=== PATIENT | female | born 1945 | race Caucasian/White ===

== ENCOUNTER 2016-09-15 03:02 | Emergency (ER) | payer MEDICARE ==
[2016-09-15 03:02] VITALS: BMI 26.0
[2016-09-15] MEDS ORDERED: METHYLPREDNISOLONE 125 MG/2 ML VIAL IV ONE (03:39)
[2016-09-15] MEDS ORDERED: Albuterol/Ipratropium Neb 3 ML NEB NEB ONE (03:39)
--- NOTE | 2016-09-15 03:41 | EDPRACDOC ---
- General Information Chief Complaint: Dyspnea/Resp distress Stated Complaint: SHOB Time Seen by Provider: 09/15/16 03:34 Home Medications: Home Medications Albuterol Sulfate [Ventolin Hfa] 1 - 2 puff INH Q4H PRN #1 each 01/26/15 Azithromycin [Zithromax] 0 mg PO DAILY #6 tablet 01/26/15 Diazepam 5 mg PO BID 01/26/15 Fluticasone/Salmeterol [Advair 250-50] 14 puff INH DAILY 01/26/15 Furosemide [Lasix] 20 mg PO DAILY 01/26/15 Lisinopril [Prinivil] 10 mg PO DAILY 01/26/15 Pramipexole [Mirapex] 0.125 mg PO HS 01/26/15 Prednisone [Sterapred 5 mg/6 day Uni-Pack] 21 tab PO DIR #1 pack 01/26/15 Tiotropium Scurry [Spiriva] 18 mcg IH DAILY 01/26/15 Benzonatate [Tessalon Perle] 100 mg PO TID PRN #20 capsule 04/20/16 Pseudoephedrine HCl 60 mg PO Q6 PRN #20 tablet 04/20/16 Albuterol Sulfate Nebs [Proventil, Ventolin] 3 ml NEB Q4 #60 nebu 09/15/16 Albuterol Sulfate [Ventolin Hfa] 1 - 2 puff INH Q4H PRN #1 each 09/15/16 Levofloxacin [Levaquin] 750 mg PO DAILY #10 tab 09/15/16 Prednisone [Sterapred 10 mg/6 day pack] 21 tab PO DIR #1 pack 09/15/16 Allergies/Adverse Reactions: Allergies Allergy/AdvReac Type Severity Reaction Status Date / Time No Known Allergies Allergy Verified 04/20/16 07:03 - History of Present Illness HPI: PATIENT HAS A HX OF COPD AND BECAME INCREASING SOB TONIGHT. NO FEVER. COUGH PRODUCTIVE OF KIRAN SPUTUM. Shortness of Breath: Moderate Relevant History: Reports: COPD Cough: Reports: Productive Ear Symptoms: Reports: None SOB Worsens with: Reports: Nothing SOB Improves with: Reports: Inhaler Associated Signs and symptoms: Reports: Cough, Nasal Symptoms ED Past Medical History - History Reviewed Yes Nurses notes reviewed and agree except as marked Travel Outside of [place] in the Last 3 Months?: No - Patient Medical History Cardiac History: Reports: Hypertension Respiratory History: Reports: COPD GI/ History: Reports: Gastroesophageal Reflux Psychological History: Reports: Depression - Social Medical History Smoking Status: Former smoker ETOH: None Substance Abuse: None Lives With: Family Lives In: Home EDM Review of Systems - Review of Systems ROS Negative Except as Marked: Yes All systems reviewed and were negative except as marked Constitutional: No Symptoms Reported. negative: Fever, Chills, Weakness, Fatigue, Loss of Appetite Eyes: No Symptoms Reported. negative: Redness, Blurred Vision, Double Vision, Discharge, Pain, Light Sensitive, Photophobia Ears: No Symptoms Reported. negative: Pain, Hearing Loss, Drainage, Ear Pulling Throat: No Symptoms Reported. negative: Pain, Swelling Nose: No Symptoms Reported. negative: Congestion, Bleeding, Discharge, Injection, Swelling, Deformity, Ecchymosis, Tender, Abrasion, Laceration Mouth: No Symptoms Reported. negative: Pain, Drooling Respiratory: Cough, Shortness of Breath, Wheezing. negative: Barky Cough, Brassy Cough, Hemoptysis Cardiovascular: No Symptoms Reported. negative: Chest Pain, Palpitations, Syncope, Edema, Orthopnea, PND, Skin Mottling, Cyanosis Gastrointestinal: No Symptoms Reported. negative: Pain, Constipation, Nausea, Vomiting, Diarrhea, Melena, Formula Intolerance Genitourinary: No Symptoms Reported. negative: Dysuria, Hematuria, Frequency, Discharge, Bleeding, Testicular Pain, Neurological: No Symptoms Reported. negative: Headache, Dizziness, Seizure, Numbness, Weakness, Speech Difficulty, Gait Difficulty Musculoskeletal: No Symptoms Reported. negative: Neck, Chestwall, Ribs, Back, Shoulder, Arm, Elbow, Forearm, Wrist, Hand, Pelvis, Hip, Femur, Knee, Leg, Ankle , Foot Integumentary: No Symptoms Reported. negative: Itching, Rash, Bruising, Wound Allergic/Immunologic: No Symptoms Reported. negative: Hives, Itching Hematologic: No Symptoms Reported. negative: Lymphadenopathy, Easy Bruising, Easy Bleeding Endocrine: No Symptoms Reported. negative: Weight Gain, Weight Loss Psychiatric: No Symptoms Reported. negative: Anxiety, Depression, Hallucinations, Insomnia, Suicidal - Physical Exam Constitutional: Alert (Awake), Distress (MILD) Oriented to: Time, Person, Place Last recorded Vital Signs: Oxygen Pulse Oxygen Saturation O2 Device Oxygen Flow Rate Fraction of Inspired Oxygen ( FIO2) - HEENT Head: Normal ( normocephalic) Eye Exam: Normal (PERRL, EOMI, Sclera white) Oropharynx: Normal (Pharynx:Moist without exudate,Gums-no swelling) Tympanic Membrane: Normal ENT EAC: Normal TMJ: Normal Nose: No Symptoms Reported (septum midline) Neck: Normal (FROM, trachea at midline) - Respiratory/Cardiovascular Respiratory: Diminished, Wheezes Cardiovascular: Tachycardia - GI Auscultation: Normal (NABS) Palpation: Normal (Soft,No rebound or guarding, non distended) Tenderness: Non tender Corley's Sign: Negative - Musculoskeletal Back: Normal (Non-Tender) Extremities: Normal (Normal tone, Pulses 2+ No cyanosis or edema, FROM) - Integumentary Skin: Normal, Warm, Dry Lymphatics: Normal (no adenopathy) - Neurologic Memory Impaired: Normal Motor Function: Normal (Normal tone, Pulses 2+ No cyanosis or edema, FROM) Cranial Nerve: Normal (CN II-X11 intact sensation, strength 5/5) Cerebellar: Normal Mood Description: Normal Perception: Normal ED SOB MDM - Results Result Diagrams: 09/15/16 04:15 09/15/16 04:15 - EKG EKG #1 EKG Time: 04:41 -: Yes EKG interpreted by me Rate: bpm: 118 Dwarf: Normal Rhythm: ST Block: None Hypertrophy: None ST: Normal Decision Time to Discharge: 05:35 - Departure Yes I personally saw and evaluated the patient. Disposition: Home Condition: Good Final Diagnosis: COPD exacerbation URI (upper respiratory infection) Qualifiers: URI type: unspecified URI Qualified Code(s): J06.9 - Acute upper respiratory infection, unspecified Instructions: COPD (Chronic Obstructive Pulmonary Disease) (ED), Upper Respiratory Infection (ED) Education/Counseling Given To: Patient Education/Counseling Given Regarding: Diagnosis, Treatment, Prognosis, Follow Up Referrals: None,No Provider [Primary Care Provider] - One Week Karen Hendrcikson MD [Staff Physician] - One Week Prescriptions: Albuterol Sulfate [Ventolin Hfa] 1 - 2 puff INH Q4H PRN #1 each PRN Reason: SHORTNESS OF BREATH Albuterol Sulfate Nebs [Proventil, Ventolin] 3 ml NEB Q4 #60 nebu Levofloxacin [Levaquin] 750 mg PO DAILY #10 tab Prednisone [Sterapred 10 mg/6 day pack] 21 tab PO DIR #1 pack
--- NOTE | 2016-09-15 04:31 | DIRPT ---
CLINICAL DATA: Chronic worsening shortness of breath and cough. Subsequent encounter. EXAM: PORTABLE CHEST 1 VIEW COMPARISON: Chest radiograph performed 09/05/2016 FINDINGS: The lungs are well-aerated. Mild vascular congestion is noted, with mild bilateral atelectasis. There is no evidence of pleural effusion or pneumothorax. The cardiomediastinal silhouette is within normal limits. No acute osseous abnormalities are seen. IMPRESSION: Mild vascular congestion noted, with mild bilateral atelectasis. Electronically Signed By: Jimy Garduno M.D. On: 09/15/2016 04:29
[2016-09-15 04:32] LABS: AUTOMATED BASOPHIL 0.7 % (0-2); AUTOMATED EOSINOPHIL 0.8 % (0-5); AUTOMATED LYMPH 7.2 % (17-44); AUTOMATED MONOCYTE 7.4 % (3-10); AUTOMATED NEUTROPHIL 83.9 % (45-76); MPV 8.1 fL (7.4-10.4)
[2016-09-15 04:46] LABS: PARTIAL THROMB. TIME 23.6 SEC (22-35)
[2016-09-15 04:50] LABS: BLOOD UREA NITROGEN 12 MG/DL (7-17); CALC CORRECTED 9.1 MG/DL (8.4-10.2); CALCULATED OSMOLALITY 269 MOs/Kg (270-290); CHLORIDE 97 mEq/L (98-107); GLUCOSE 113 MG/DL (70-99); SODIUM LEVEL 139 mEq/L (137-146); TOTAL PROTEIN 6.8 G/DL (6.3-8.2)
[2016-09-15] MEDS ORDERED: ALBUTEROL 0.083% 3 ML NEB NEB ONE ×2 (05:07→05:38)
[2016-09-15 05:19] LABS: ALLEN'S TEST PASS; BEb 7.8 (+/- 2); TCO2 34.8 MMOL/L (23-27)
[2016-09-15 05:21] LABS: ABG Draw Site Right Brachial
[2016-09-15] MEDS ORDERED: ACETYLCYSTEINE 20% SOLN 4 ML NEB SCH ×2 (06:00→08:00)
[2016-09-15 06:51] VITALS: BP 165/71; PULSE 128
[2016-09-15 07:17] VITALS: TEMP 98.7
== END 2016-09-15 07:05 | disposition home or self-care (01) ==
LOC: ED 03:02
DX: J44.1 Chronic obstructive pulmonary disease with (acute) exacerbation (principal)
CPT/HCPCS: 36415; 36600; 71010; 80053; 82803; 83880; 84484; 85025; 85610; 85730; 93005; 94640; 96374; 99284; A9270; J2930; J7608; J7620; J3490